=== PATIENT | male | born 1995 | race Caucasian/White ===

== ENCOUNTER 2021-03-09 12:49 | Emergency (ER) | payer OTHER ==
[~2021-03-09] VITALS: Ht 177.8 cm; Wt 95.2 kg
[~2021-03-09 12:49] MED LIST: Bactroban22 GM TOP; CYCL10 PO; HYDACE5 PO; IBUP600 PO; METPRE4DP PO; PROM25 PO; RANI150 PO; SULTRIDS PO; TRAM50 PO
[2021-03-09] MEDS ORDERED: CYCL10 PO (15:18)
[2021-03-09] MEDS ORDERED: LIDO700A20 TOP (15:18)
== END 2021-03-09 15:28 | disposition home or self-care (01) ==
LOC: ER 12:49
DX: M54.5 Low back pain (principal); F17.200 Nicotine dependence, unspecified, uncomplicated
CPT/HCPCS: 72100; 99283-25; A9270

== ENCOUNTER 2023-04-05 10:17 | Emergency (ER) | payer OTHER ==
[~2023-04-05] VITALS: Ht 177.8 cm; Wt 90.7 kg
[~2023-04-05 10:17] MED LIST changes: +LIDO700A20 TOP
[2023-04-05 10:53] VITALS: BP 122/80
[2023-04-05] MEDS ORDERED: Robaxin750 MG PO (11:19)
== END 2023-04-05 11:32 | disposition home or self-care (01) ==
LOC: ER 10:17
DX: M54.50 Low back pain, unspecified (principal); F17.200 Nicotine dependence, unspecified, uncomplicated
CPT/HCPCS: 96372; 99283-25; A9270; J1885